=== PATIENT | female | born 1995 | race Caucasian/White ===

== ENCOUNTER 2017-11-18 05:31 | Inpatient (IN) | payer BC ==
[~2017-11-18 05:31] MED LIST: Acetaminophen 500 MG TAB PO PRN; Bicitra 30 ML UDCUP PO SCH; Ondansetron HCl/PF 4 MG/2 ML Vial IVP PRN; Promethazine HCl 25 MG/ML VIAL IM PRN
[2017-11-18] MEDS: Lactated Ringer's 1,000 ML IV SCH ×3 (06:05→11:59)
[2017-11-18 06:08] VITALS: BMI 25.9
[2017-11-18 06:32] LABS: Hemoglobin 11.7 g/dL (12.0-16.0); Mean Corpuscular HGB CONC 35.6 g/dL (32.0-36.0); Mean Corpuscular Volume 84.4 fL (78.0-98.0); Mean Platelet Volume 8.5 fL (7.4-10.4); Platelet Count 181 thou/uL (130-400); RBC Distribution Width 12.9 % (11.5-14.5); Red Blood Cell (RBC) Count 3.89 mill/uL (4.20-5.40); White Blood Cell (WBC) Count 7.3 thou/uL (4.8-10.8)
[2017-11-18] MEDS ORDERED: CEFAZOLIN/Water 2 GM/20 ML SYRINGE SLOW IVP SCH (07:00)
[2017-11-18 07:13] LABS: HBSAg Index 0.17 S/CO (0-0.99); HIV (1/2) Antibody/Antigen Non-Reactive (NonReactive); HIV 1/2 INDEX 0.11 S/CO (<1.00); Hep B Surf Ag Non-Reactive S/CO (NonReactive); Syphilis Antibody Nonreactive (Nonreactive); Syphilis Antibody Index 0.03 S/CO (<1.00 Non-Reactive)
[2017-11-18] MEDS ORDERED: Morphine PF 1 MG/ML SYR ONE (07:19)
[2017-11-18] MEDS ORDERED: Fentanyl 100 MCG/2 ML VIAL ONE (07:19)
[2017-11-18] MEDS ORDERED: Bupivacaine 0.75% W/DEXTROSE 8.25% 2 ML AMP ONE (07:22)
[2017-11-18] MEDS ORDERED: ePHEDrine/0.9% NaCl/PF SYRINGE 50 mg/10 ml ONE ×2 (07:32→09:30)
[2017-11-18] MEDS ORDERED: Oxytocin 10 UNITS/ML VIAL ONE ×2 (07:40→08:26)
[2017-11-18] MEDS ORDERED: Ketorolac Tromethamine 30 MG/ML VIAL ONE ×2 (08:15→09:30)
[2017-11-18] MEDS ORDERED: Ondansetron HCl/PF 4 MG/2 ML Vial ONE ×2 (08:15→09:30)
[2017-11-18] MEDS ORDERED: Promethazine HCl 25 MG/ML VIAL IM PRN (08:43)
[2017-11-18] MEDS ORDERED: Meperidine HCl/PF 25 MG/ML VIAL SLOW IVP PRN (08:43)
[2017-11-18] MEDS ORDERED: Ondansetron HCl/PF 4 MG/2 ML Vial IVP PRN ×3 (08:43→09:03)
[2017-11-18] MEDS ORDERED: diphenhydrAMINE 50 MG/ML VIAL IVP PRN (08:43)
[2017-11-18] MEDS ORDERED: Ketorolac Tromethamine 30 MG/ML VIAL IVP PRN (08:43)
[2017-11-18] MEDS ORDERED: Naloxone HCl 0.4 mg/ml Vial IVP PRN ×2 (08:43)
[2017-11-18] MEDS ORDERED: Naloxone HCl 0.4 mg/ml Vial IV PRN (08:43)
[2017-11-18] MEDS ORDERED: Eucerin (Mineral Oil/Petrolatum,White) 30 gm Jar TOP PRN (08:43)
[2017-11-18] MEDS ORDERED: HYDROmorphone 2 MG/ML VIAL SLOW IVP PRN (08:43)
[2017-11-18] MEDS ORDERED: Promethazine HCl 25 MG SUPP PR PRN (08:43)
[2017-11-18] MEDS ORDERED: Ketorolac Tromethamine 30 MG/ML VIAL IVP SCH (08:45)
[2017-11-18] MEDS ORDERED: Communication Order-Pharmacy FS SCH (08:45)
[2017-11-18] MEDS ORDERED: Lanolin Ointment 7 GM TUBE TOP PRN (09:03)
[2017-11-18] MEDS ORDERED: Meperidine HCl/PF 25 MG/ML VIAL IM PRN (09:03)
[2017-11-18] MEDS ORDERED: Acetaminophen 325 MG TAB PO PRN (09:03)
[2017-11-18] MEDS ORDERED: diphenhydrAMINE 25 MG CAP PO PRN (09:03)
[2017-11-18] MEDS ORDERED: Zolpidem Tartrate 5 MG TAB PO PRN (09:03)
[2017-11-18] MEDS ORDERED: Simethicone Chewable 80 MG TAB PO PRN (09:03)
[2017-11-18] MEDS ORDERED: Bisacodyl 10 MG SUPP PR PRN (09:03)
[2017-11-18] MEDS ORDERED: Adacel (T-DAP) 0.5 ML VIAL IM ONE (09:03)
[2017-11-18] MEDS ORDERED: Lactated Ringer's 1,000 ML IV SCH (09:15)
[2017-11-18] MEDS ORDERED: NS / Oxytocin 40 units/1000ml 1,000 ML IV SCH (09:15)
[2017-11-18] MEDS: Ibuprofen 800 MG TAB PO SCH ×2 (11:59→21:28)
[2017-11-18] MEDS: HYDROcodone/Acetaminophen 5/325 mg Tablet PO PRN ×2 (17:01→22:22)
[2017-11-18] MEDS ORDERED: Sodium Chloride 0.9% 10 ML ONE (19:48)
[2017-11-18] MEDS: Docusate Calcium (SURFAK) 240 MG CAP PO SCH (21:28)
[2017-11-18] MEDS: Ferrous Sulfate 325 MG TAB PO SCH (21:29)
[2017-11-19] MEDS: HYDROcodone/Acetaminophen 5/325 mg Tablet PO PRN ×4 (03:56→23:32)
[2017-11-19] MEDS: Ibuprofen 800 MG TAB PO SCH ×3 (05:05→21:51)
[2017-11-19 05:20] LABS: Hemoglobin 9.8 g/dL (12.0-16.0); Mean Corpuscular HGB CONC 31.4 g/dL (32.0-36.0); Mean Corpuscular Hemoglobin 26.8 pg (27.0-31.0); Mean Corpuscular Volume 85.5 fL (78.0-98.0); Mean Platelet Volume 8.1 fL (7.4-10.4); Platelet Count 189 thou/uL (130-400); RBC Distribution Width 12.9 % (11.5-14.5); Red Blood Cell (RBC) Count 3.65 mill/uL (4.20-5.40); White Blood Cell (WBC) Count 8.1 thou/uL (4.8-10.8)
[2017-11-19] MEDS: Ferrous Sulfate 325 MG TAB PO SCH ×2 (08:15→21:52)
[2017-11-19] MEDS: Docusate Calcium (SURFAK) 240 MG CAP PO SCH ×2 (08:15→21:52)
[2017-11-19] MEDS: Prenatal Vitamin 1 TAB PO SCH (08:15)
[2017-11-20] MEDS: Ibuprofen 800 MG TAB PO SCH (05:20)
[2017-11-20 07:52] VITALS: BP 114/72; TEMP 98.9
[2017-11-20] MEDS: Prenatal Vitamin 1 TAB PO SCH (10:34)
[2017-11-20] MEDS: Docusate Calcium (SURFAK) 240 MG CAP PO SCH (10:34)
[2017-11-20] MEDS: Ferrous Sulfate 325 MG TAB PO SCH (10:35)
[2017-11-20] MEDS: HYDROcodone/Acetaminophen 5/325 mg Tablet PO PRN (12:51)
--- NOTE | 2017-11-21 16:23 | OP ---
DATE OF PROCEDURE: 11/18/2017 ATTENDING STAFF PHYSICIAN: Austen Frederick M.D. SURGEON: Austen Frederick M.D. ANALYSIS INTERNSHIP SURGEON: 1. Nia Burnham M.D. 2. Pete Simmons MD PREOPERATIVE DIAGNOSES: 1. Term intrauterine at 39 weeks. 2. History of back surgery, (no trial of labor). 3. Size greater than dates. POSTOPERATIVE DIAGNOSES: 1. Term intrauterine at 39 weeks. 2. History of back surgery, (no trial of labor). 3. Size greater than dates. PROCEDURE: Primary low transverse section. ANESTHESIA: Spinal catheterization. FINDINGS: 1. Vigorous term female , 9 pounds 0 ounces, Apgars 8 and 9. 2. Normal uterus, tubes, and ovaries. COMPLICATIONS: None. SPECIMENS REMOVED: Cord blood. ESTIMATED BLOOD LOSS: Approximately 800 mL PROCEDURE IN DETAIL: After thorough consent and counseling, Mrs. Tolliver was taken to the operating room and an adequate level of anesthesia was obtained by spinal catheterization. The patient was pr epped and draped in the usual sterile fashion for abdominal surgery. [facility], which was noted to be draining clear urine. Attention was then turned performing the primary low transverse section. A Pfannenstiel incision was made and carried sharply to the fascia which was also sharply incised. T he midline was identified and the rectus muscles were retracted laterally. The abdominal peritoneal cavity was entered with usual safeguards carried out. A retractor was placed and a bladder flap was created on the vesicouterine peritoneum. A bladder blade was then placed. A low transverse incision was made on the well-developed lower uterine segment. Upon entering the amniotic sac, copious amoun t of clear amniotic fluid was visualized. The was noted to be vertex presentation in the occi put anterior position high in the pelvis. Head was delivered in an atraumatic fashion. Shoulders an d body were then carefully delivered. The cord was doubly clamped and cut and the was handed to the neonatology team in attendance for the delivery. The was a vigorous viable female weig rosalina 9 pounds 0 ounces with Apgars of 8 and 9 obtained at 1 and 5 minutes respectively. Cord blood w as obtained. The cord was doubly clamped and cut and infant was handed to the neonatology team in at tendance for the delivery. The placenta was manually removed from the uterus. The uterus was exteri orized and good tone was noted. The uterine cavity was cleared of any remaining clot and fluid. Goo d tone was noted. The low transverse incision was closed with a running locking ligature of #1 chrom ic. A second imbricating layer was placed to facilitate strength and hemostasis. The vesicouterine peritoneum was reapproximated with running ligature of 3-0 Monocryl suture. The posterior cul-de-sac and gutters were cleared of clot and fluid. The uterus was returned to the abdomen and good tone an d hemostasis was appreciated. All surgical sites were inspected and noted be hemostatic. The Lap, s ponge, and needle counts were correct. The peritoneum was closed with a running ligature of 2-0 Vicr yl. The rectus muscles were reapproximated in the midline with interrupted ligatures of 2-0 Vicryl. The fascia was closed with 2 ligatures of 0 Vicryl suture, which were tied in the midline. Good fas cial integrity was appreciated. The incision was irrigated with copious amount of warm normal saline . The subcutaneous tissue was closed with interrupted ligatures of 2-0 plain. The skin was closed w ith a subcuticular stitch of 4-0 Monocryl. A pressure dressing and ice packs were subsequently place d. Estimated blood loss during the surgical procedure was 800-900 mL. The patient was returned to the recovery room in good condition. Mother and baby were doing well pos toperatively. Immediately following surgery, the patient and family were made aware of the surgical procedure and operative findings. Questions answered to their satisfaction.
== END 2017-11-20 14:50 | disposition home or self-care (01) | DRG 766 ==
LOC: L&D-LIB 05:31 → L&D 05:37 → 3SE 11:52
PROVIDERS: ADMIT Obstetrics & Gynecology; ATTEND Obstetrics & Gynecology
PROC: 10D00Z1 Extraction of Products of Conception, Low, Open Approach (ICD-10-PCS; principal; 2017-11-18)
PROC: 4A0HXCZ Measurement of Products of Conception, Cardiac Rate, External Approach (ICD-10-PCS; 2017-11-18)
DX: O82 Encounter for cesarean delivery without indication (principal); Z3A.39 39 weeks gestation of pregnancy; Z37.0 Single live birth; Z98.1 Arthrodesis status
CPT/HCPCS: 36415; 51702; 85027; 86780; 86850; 86900; 86901; 87340; 87389; A4216; J1885; J2274; J2405; J2590; J3010; J3490